=== PATIENT | female | born 1970 | race Two or more races ===

== ENCOUNTER 2017-08-10 14:12 | Emergency (ER) | payer BC ==
[~2017-08-10] VITALS: Ht 182.9 cm; Wt 75.0 kg
[2017-08-10] MEDS ORDERED: POTA4.25 PO (14:58)
[2017-08-10] MEDS ORDERED: SODI650T PO (14:58)
[2017-08-10] MEDS ORDERED: REGL10TA6 PO (14:58)
[2017-08-10] MEDS ORDERED: LORA10CA PO (14:58)
[2017-08-10] MEDS ORDERED: NORC1TAB4 PO (14:58)
[2017-08-10] MEDS ORDERED: VITA500T3 PO (14:58)
[2017-08-10] MEDS ORDERED: LEVO25TA5 PO (14:58)
[2017-08-10] MEDS ORDERED: VITA-115 PO (14:58)
[2017-08-10] MEDS ORDERED: ESTR1TAB PO (14:58)
[2017-08-10] MEDS ORDERED: OMEP20CA3 PO (14:58)
[2017-08-10] MEDS ORDERED: ZOFR20TA PO (14:58)
[2017-08-10] MEDS ORDERED: PRED1TABL PO (14:58)
[2017-08-10] MEDS ORDERED: ONDANSETRON 4 MG ORAL DISINTEGRATING TAB (S0181) PO ONE (16:15)
[2017-08-10 16:48] LABS: BASO % 0.2 % (0.0-1.0); EOS # 0.2 10^3/uL (0.0-0.50); EOS % 1.8 % (0.0-3.0); IMMATURE GRANULOCYTE % 0.2 % (0-0); LYMPH # 1.1 10^3/uL (1.5-4.5); LYMPH % 13.1 % (24.0-44.0); MEAN CORPUSCULAR HEMOGLOBIN 27.7 pg (27.0-33.0); MEAN CORPUSCULAR HGB CONC 32.6 g/dl (32.0-36.5); MONO # 0.5 10^3/uL (0.0-0.8); MONO % 6.5 % (0.0-5.0); NEUTROPHILS # 6.5 10^3/uL (1.8-7.7); NEUTROPHILS % 78.2 % (36.0-66.0); PLATELET COUNT, AUTOMATED 218 10^3/uL (150-450); RED CELL DISTRIBUTION WIDTH 13.1 % (11.5-14.5); WHITE BLOOD COUNT 8.3 10^3/uL (4.0-10.0)
[2017-08-10 17:15] LABS: ALBUMIN 3.6 GM/DL (3.2-5.2); ALBUMIN/GLOBULIN RATIO 0.69 (1.00-1.93); BILIRUBIN,TOTAL 0.5 MG/DL (0.2-1.0); CALCIUM LEVEL 9.2 MG/DL (8.5-10.1); CREATININE FOR GFR 1.88 MG/DL (0.55-1.02); GLOMERULAR FILTRATION RATE 30.5 (>58); POTASSIUM SERUM 3.7 MEQ/L (3.5-5.1); TOTAL PROTEIN 8.8 GM/DL (6.4-8.2)
[2017-08-10] MEDS ORDERED: METOCLOPRAMIDE INJ 10MG/2ML VIAL (J2765) IV ONE (17:45)
[2017-08-10] MEDS ORDERED: NS 1,000 ML IV ONE (17:45)
[2017-08-10] MEDS ORDERED: ONDANSETRON 4MG/2ML VIAL (J2405) IV ONE (18:30)
[2017-08-10] MEDS ORDERED: HYDROmorphone HCL 1 MG/ML SYRINGE (J1170) IV ONE (18:30)
[2017-08-10] MEDS ORDERED: GASTROGRAFIN SOLUTION 30ML (Q9963) As Ordered ONE (18:52)
[2017-08-10] MEDS ORDERED: GASTROGRAFIN SOLUTION 30ML PO ONE (19:00)
[2017-08-10] MEDS ORDERED: GASTROGRAFIN SOLUTION 30ML (Q9963) PO ONE (19:30)
--- NOTE | 2017-08-10 21:20 | REPUSA ---
CT of the abdomen and pelvis without contrast Clinical statement: Pain. Technique: Multiple axial CT images were obtained from the base of the lungs to the floor of the pelv is utilizing 5 mm axial slices after ministration of oral contrast. Coronal and sagittal reconstructi ons were also obtained. No comparison is available. Findings: Chest: The visualized lung bases are clear. Abdomen: The kidneys are normal in size bilaterally. Calcifications are seen in the medullary pyramid s of the kidneys bilaterally. Bilateral nonobstructing nephrolithiasis is also noted. There is a 1.5 cm simple cyst in the lateral upper left kidney. There is no evidence of hydronephrosis. The liver, s pleen, pancreas, and adrenal glands are unremarkable. The aorta demonstrates normal caliber and conto ur. There is no abdominal lymphadenopathy or ascites. Pelvis: The bowel is unremarkable, with no obstructive or inflammatory changes. The urinary bladder i s within normal limits. There is no pelvic lymphadenopathy or ascites. The other pelvic structures ap pear unremarkable. Bones: There are no suspicious osseous abnormalities seen. Impression: 1. Bilateral medullary nephrocalcinosis. Bilateral nonobstructing nephrolithiasis. The left renal cys t. 2. No obstructive or inflammatory bowel changes.
[2017-08-10 22:43] VITALS: BP 113/76
--- NOTE | 2017-08-11 16:02 | REP ---
Abdomen series: Three views. History: Abdomen pain. Wheezing. Findings: Upright chest radiograph is normal. Heart is not enlarged. Lung wniston are clear. Pleural angles are sharp. Pulmonary vasculature is not increased. No bony abnormality is seen. Supine and upright views of the abdomen demonstrate innumerable intrarenal calculi distributed along the cortical medullary junction region of the kidneys bilaterally consistent with medullary sponge kidney or extensive bilateral nephrolithiasis. There are clips in the right upper quadrant. Bowel gas pattern is normal. Phleboliths are noted in the pelvis. No bony abnormality is seen. Psoas margins are symmetric. There is no evidence of significant air fluid level or free subdiaphragmatic air. Impression: Innumerable intrarenal calculi bilaterally, possible medullary sponge kidney. Clips in the right upper quadrant. Normal bowel gas pattern. No active disease in the chest. Signed by Rachid Coelho MD 08/11/2017 04:59 P
== END 2017-08-10 22:43 | disposition home or self-care (01) ==
LOC: M ED 14:12
DX: N20.0 Calculus of kidney (principal); M32.9 Systemic lupus erythematosus, unspecified; J45.909 Unspecified asthma, uncomplicated; N18.4 Chronic kidney disease, stage 4 (severe); Z98.0 Intestinal bypass and anastomosis status; Z98.890 Other specified postprocedural states; Z87.19 Personal history of other diseases of the digestive system
CPT/HCPCS: 36415; 74022; 74176; 80053; 81001; 83690; 85025; 96374; 96375; 99284; J1170; J2405; J2765; Q9963